=== PATIENT | male | born 1955 | race Caucasian/White ===

== ENCOUNTER 2023-02-04 14:16 | Emergency (ER) | payer MEDICARE | END 2023-02-04 15:09 | disposition home or self-care (01) | LOC: MW.ED 14:16 | DX: S06.0X0A Concussion without loss of consciousness, initial encounter (principal); S69.91XA Unspecified injury of right wrist, hand and finger(s), initial encounter; I10 Essential (primary) hypertension; W01.0XXA Fall on same level from slipping, tripping and stumbling without subsequent striking against object, initial encounter | CPT/HCPCS: 99283 ==